=== PATIENT | male | born 1980 | race Caucasian/White ===

== ENCOUNTER 2017-09-15 16:43 | Emergency (ER) | payer SELFPAY ==
[~2017-09-15] VITALS: Ht 177.8 cm; Wt 95.3 kg
[~2017-09-15 16:43] MED LIST: SUMA25TA; VERA240T97 PO
[2017-09-15 16:50] VITALS: BP 131/81
[2017-09-15] MEDS ORDERED: HYDROCODONE/APAP 10/325MG 1 EA TABLET ONE (17:11)
[2017-09-15 17:15] LABS: APPEARANCE,URINE Clear (CLEAR); BILIRUBIN,URINE Negative (NEGATIVE); BLOOD, URINE Negative Ery/uL (NEGATIVE); COLOR,URINE Yellow (YELLOW); KETONES,URINE Negative (NEGATIVE); LEUKOCYTE ESTERASE ,URINE Negative (NEGATIVE); NITRITE, URINE Negative (NEGATIVE); PROTEIN,URINE Negative (NEGATIVE); UGLUCOSE Negative (NEGATIVE); UROBILINOGEN,URINE 0.2 EU/dL (0.2)
[2017-09-15] MEDS ORDERED: HYDROCODONE/APAP 10/325MG 1 EA TABLET PO ONE (17:30)
== END 2017-09-15 21:03 | disposition home or self-care (01) ==
LOC: ER 16:51
DX: N43.2 Other hydrocele (principal); N50.3 Cyst of epididymis; F17.200 Nicotine dependence, unspecified, uncomplicated
CPT/HCPCS: 76870; 81001; 99285; A4606; Z7610; 81000-TC

== ENCOUNTER 2017-10-11 23:47 | Emergency (ER) | payer SELFPAY ==
[~2017-10-11] VITALS: Ht 177.8 cm; Wt 95.3 kg
--- NOTE | 2017-10-11 23:55 | NUR ---
pt states " I did meth today after being sober for 3 months"
--- NOTE | 2017-10-11 23:55 | NUR ---
bb friend stating "i took 50 100mg advil pills at 1030p to try and hurt myself". pt states he was "being suicidal and had no plan, and just did it." Pt denies wanting to hurt others. pt is aaox4. resp even and unlabored. no s/s of acute distress noted. skin pink and warm. VSS. pt gowned and placed on monitor and pox. urine sample collected. awaiting md for eval. pt safety and comfort measures in place. family member bedside with pt.
[2017-10-12] MEDS ORDERED: LORAZEPAM 1 MG TABLET ONE ×2 (00:22→01:22)
--- NOTE | 2017-10-12 00:26 | NUR ---
Phlebotomy bedside for blood draw
[2017-10-12] MEDS ORDERED: LORAZEPAM 1 MG TABLET PO ONE ×2 (00:30→01:30)
[2017-10-12 00:45] LABS: BASOPHILS # (AUTO) 0.1 /CMM (0.0-0.2); BASOPHILS % (AUTO) 1.3 % (0.0-2.0); EOSINOPHILS # (AUTO) 0.1 /CMM (0.0-0.7); EOSINOPHILS % (AUTO) 1.4 % (0.0-6.0); HEMATOCRIT 44 % (39-51); HEMOGLOBIN 15.4 g/dL (13.5-17.5); LYMPHOCYTES # (AUTO) 2.8 /CMM (0.8-4.8); LYMPHOCYTES % (AUTO) 28.8 % (20.0-44.0); MEAN CORPUSCULAR HEMOGLOBIN 31 PG (26.0-33.0); MEAN CORPUSCULAR HGB CONC 35 g/dl (31.0-36.0); MEAN CORPUSCULAR VOLUME 88 fL (80-96); MONOCYTES # (AUTO) 0.4 /CMM (0.1-1.30); MONOCYTES % (AUTO) 4.2 % (2.0-12.0); NEUTROPHILS # (AUTO) 6.3 /CMM (1.8-8.9); NEUTROPHILS % (AUTO) 64.3 % (43.0-81.0); PLATELET COUNT (AUTO) 317 /CMM (150-450); RDW COEFFICIENT OF VARIATION 13.1 (11.5-15.0); RED BLOOD CELL COUNT(AUTO) 4.99 MIL/uL (4.5-6.0); WHITE BLOOD COUNT (AUTO) 9.8 K/uL (4.3-11.0)
[2017-10-12 01:11] LABS: CALCIUM, SERUM 9.3 mg/dL (8.5-10.1); CREATININE 1.1 mg/dL (0.6-1.3); POTASSIUM 3.9 mmol/L (3.5-5.1)
[2017-10-12 01:17] LABS: ALBUMIN 4.1 g/dL (3.4-5.0); BILIRUBIN,DIRECT 0.1 mg/dL (0.0-0.2); BILIRUBIN,TOTAL 0.6 mg/dL (0.2-1.0); SALICYLATE 3.3 mg/dL (2.8-20.0); TOTAL PROTEIN, SERUM 7.9 g/dL (6.4-8.2)
--- NOTE | 2017-10-12 01:48 | NUR ---
Patient is resting comfortably in bed with eyes closed. Easily aroused. VSS
--- NOTE | 2017-10-12 01:52 | NUR ---
Nella was paged for psych eval.
--- NOTE | 2017-10-12 03:22 | NUR ---
Nella bedside with pt for psych eval
--- NOTE | 2017-10-12 03:39 | NUR ---
Patient discharged to home in stable condition. Written and verbal after care instructions given. Patient verbalizes understanding of instruction.
[2017-10-12 03:42] VITALS: BP 135/91
== END 2017-10-12 03:43 | disposition home or self-care (01) ==
LOC: ER 23:48
DX: T39.311A Poisoning by propionic acid derivatives, accidental (unintentional), initial encounter (principal); F15.10 Other stimulant abuse, uncomplicated; F41.9 Anxiety disorder, unspecified; Z71.6 Tobacco abuse counseling; Y92.89 Other specified places as the place of occurrence of the external cause
CPT/HCPCS: 36415; 80048; 80076; 80305; 80329; 85025; 99284; 99406; A4606; G0480 ×2; Z7610

== ENCOUNTER 2017-12-04 20:57 | Emergency (ER) | payer OTHER ==
--- NOTE | 2017-12-04 21:06 | NUR ---
PT CALLED FOR TRIAGE. NO RESPONSE
--- NOTE | 2017-12-04 21:15 | NUR ---
PT CALLED FOR TRIAGE, NO RESPONSE.
== END 2017-12-04 22:24 | disposition left against medical advice (07) ==
LOC: ER 21:05
DX: Z53.21 Procedure and treatment not carried out due to patient leaving prior to being seen by health care provider (principal); R11.10 Vomiting, unspecified

== ENCOUNTER 2019-01-13 12:52 | Inpatient (IN) | payer OTHER ==
[~2019-01-13] VITALS: Ht 182.9 cm; Wt 99.8 kg
[2019-01-13] VITALS (22 sets, daily range): BP systolic 94–174; BP diastolic 48–119
[~2019-01-13 12:52] MED LIST changes: +VERA240T14 PO; -VERA240T97 PO
[2019-01-13] MEDS ORDERED: SUCCINYLCHOLINE CHLORIDE 20 MG/ML VIAL IV ONE ×2 (12:54→14:00)
[2019-01-13] MEDS ORDERED: PROPOFOL 100 ML ONE (12:56)
--- NOTE | 2019-01-13 12:59 | NUR ---
DR WARREN, RT AND RN AT BEDSIDE FOR INTUBATION
--- NOTE | 2019-01-13 13:02 | NUR ---
INTUBATION DONE: NOTED W BILATERAL CHEST RISE AND FALL + COLOR CHANGE BILATERAL BREATH SOUNDS NO GURGLING SOUND AT EPIGASTRIC AREA A/C 12 VT 600 O2 100% PEEP 0.0 Addendum: 01/13/19 at 1355 by MONICA INTUBATION DONE: OPA INSERTED SIZE 8 23 AT THE LIP NOTED W BILATERAL CHEST RISE AND FALL + COLOR CHANGE BILATERAL BREATH SOUNDS NO GURGLING SOUND AT EPIGASTRIC AREA A/C 12 VT 600 O2 100% PEEP 0.0
--- NOTE | 2019-01-13 13:05 | NUR ---
RT PT CAME IN EMS FOR DRUG OVERDOSE, INTUBATED PT 8.0 CM 24CM SECURED AT LIP, PLACED ON [facility] VENT AC 14 600 60% +0 SX PINK TINGE YELLOW SECRETIONS SENT TO LAB NAHID ORDERED SETTING VENT PLUGGED IN RED OUTLET BAG AND MASK AT HOB WILL CONT TO MONITOR Addendum: 01/13/19 at 1452 by ROBI RITCHIE RT Amended: Links added.
[2019-01-13 13:19] LABS: BASOPHILS # (AUTO) 0.1 /CMM (0.0-0.2); BASOPHILS % (AUTO) 0.8 % (0.0-2.0); EOSINOPHILS % (AUTO) 1.3 % (0.0-6.0); HEMATOCRIT 41 % (39-51); HEMOGLOBIN 14.2 g/dL (13.5-17.5); LYMPHOCYTES # (AUTO) 2.5 /CMM (0.8-4.8); LYMPHOCYTES % (AUTO) 28.9 % (20.0-44.0); MEAN CORPUSCULAR HGB CONC 35 g/dl (31.0-36.0); MEAN CORPUSCULAR VOLUME 88 fL (80-96); MONOCYTES # (AUTO) 0.7 /CMM (0.1-1.30); MONOCYTES % (AUTO) 7.9 % (2.0-12.0); NEUTROPHILS # (AUTO) 5.3 /CMM (1.8-8.9); NEUTROPHILS % (AUTO) 61.1 % (43.0-81.0); PLATELET COUNT (AUTO) 325 /CMM (150-450); RED BLOOD CELL COUNT(AUTO) 4.61 MIL/uL (4.5-6.0); WHITE BLOOD COUNT (AUTO) 8.7 K/uL (4.3-11.0)
[2019-01-13] MEDS ORDERED: IV NS 0.9% 1,000 ML BAG IV ONE (13:30)
--- NOTE | 2019-01-13 13:30 | NUR ---
RT XRAY DONE ADVANCE TUBE BY 1CM NOW AT 24CM LIPLINE PER DR WARREN
--- NOTE | 2019-01-13 13:31 | NUR ---
ADJUSTMENT AT THE LIPLINE BY RT TO 24
[2019-01-13] MEDS ORDERED: PROPOFOL 100 ML IV ONE (13:32)
--- NOTE | 2019-01-13 13:33 | NUR ---
POISON CONTROL CALLED, SPOKE WITH KENDAL WITH FF RECOMMENDATIONS: EKG,CHEMISTRY,ALCOHOL,TYLENOL,ASPIRIN,DRUG SCREEN,SEIZURE PRECAUTION,CARDIAC MONITORING,WATCH FOR Q-T PROLONGATION DR WARREN INFORMED.
[2019-01-13 13:34] LABS: ALANINE AMINOTRANSFERASE 44 U/L (12-78); ALBUMIN 3.7 g/dL (3.4-5.0); ALCOHOL, BLOOD 20 mg/dL (0-0); ALKALINE PHOSPHATASE 74 U/L (46-116); ASPARTATE AMINOTRANSFERASE 43 U/L (15-37); BILIRUBIN,DIRECT 0.1 mg/dL (0.0-0.2); BILIRUBIN,TOTAL 1.1 mg/dL (0.2-1.0); CALCIUM, SERUM 9.1 mg/dL (8.5-10.1); CARBON DIOXIDE 23 mmol/L (21-32); CHLORIDE 105 mmol/L (98-107); CREATININE 1.2 mg/dL (0.6-1.3); GLUCOSE 134 mg/dL (74-106); POTASSIUM 3.1 mmol/L (3.5-5.1); SODIUM SERUM 142 mmol/L (136-145); TOTAL PROTEIN, SERUM 7.1 g/dL (6.4-8.2); UREA NITROGEN, BLOOD 21 mg/dL (7-18)
[2019-01-13 13:36] LABS: ACETAMINOPHEN < 2 ug/ml (10-30); SALICYLATE 2.1 mg/dL (2.8-20.0)
[2019-01-13 13:41] LABS: APPEARANCE,URINE Clear (CLEAR); BILIRUBIN,URINE SMALL (NEGATIVE); BLOOD, URINE Small Ery/uL (NEGATIVE); KETONES,URINE Negative (NEGATIVE); LEUKOCYTE ESTERASE ,URINE Negative (NEGATIVE); NITRITE, URINE Negative (NEGATIVE); PH,URINE 5.5 (5.0-8.0); PROTEIN,URINE 30 mg/dl (NEGATIVE); UGLUCOSE Negative (NEGATIVE); UROBILINOGEN,URINE 0.2 EU/dL (0.2)
[2019-01-13 13:42] LABS: COLOR,URINE Dark Yellow (YELLOW)
[2019-01-13 13:55] LABS: BACTERIA,URINE Few /HPF (None Seen); MUCUS,URINE Many /LPF (None Seen); SQUAMOUS EPITHELIAL CELL,UR Rare /HPF (None Seen); URINE AMORPHOUS URATE Few /HPF (None Seen)
--- NOTE | 2019-01-13 13:55 | NUR ---
REPORT GIVEN TO MARIA LUISA ENCARNACION FOR CONT OF CARE.
[2019-01-13 13:56] LABS: WBC,URINE 0-2 /HPF (0-3)
[2019-01-13] MEDS ORDERED: PROPOFOL 200 MG/20 ML VIAL IV ONE (14:00)
--- NOTE | 2019-01-13 14:15 | NUR ---
RT PT CAME IN FOR DRUG OVERDOSE INTUBATED WITH 7.0 22CM AT LIP SECURED, EQUAL BILATERAL CHEST RISE, C02 COLOR CHANGE PLACED ON [facility] VENT AC 12 500 100% +0. VENT PLUGGED IN RED OUTLET BAG AND MASK AT [facility] WILL CONT TO MONITOR Addendum: 01/13/19 at 1500 by ROBI RITCHIE RT Amended: Links added. Addendum: 01/13/19 at 1503 by ROBI RITCHIE RT WRONG DOCUMENTATION
--- NOTE | 2019-01-13 14:52 | NUR ---
RT PT TRANSFERRED TO ICU
[2019-01-13] MEDS ORDERED: ONDANSETRON HCL/PF 4 MG/2 ML VIAL IVP PRN (15:00)
[2019-01-13] MEDS ORDERED: MORPHINE SULFATE INJ 2 MG/ML DISP.SYRIN IV PRN (15:00)
[2019-01-13] MEDS ORDERED: ACETAMINOPHEN 650 MG/SUPP.RECT RC PRN (15:00)
[2019-01-13] MEDS ORDERED: Z GUARD REMEDY 2 OZ OINT TP PRN (15:00)
--- NOTE | 2019-01-13 15:00 | NUR ---
RN INITIAL NOTES RECEIVED PT FROM ER, PT INTUBATED, ON VENT. NO RESPIRATORY DISTRESS NOTED. NO SOB NOTED. NO SIGNS OF PAIN NOTED. PT SEDATED, ON DIPRIVAN AT 70MCG/KG/MIN. IV LINE IN PLACE. FC IN PLACE. NO HEMATURIA NOTED. BODY ASSESSMENT DONE. SKIN INTACT. SEEN AND EXAMINED BY DR ASHLEE RAYMOND. ADMISSION ORDERS MADE. SEEN AND EXAMINED BY DR HARDY. ORDERED RPT CXR. AWARE OF ABG RESULT. WILL CLOSELY MONITOR. 1530 FAMILY AT BEDSIDE. PERTINENT INFORMATION REGARDING PT PROVIDED BY MOTHER AND SISTER.
[2019-01-13] MEDS ORDERED: POTASSIUM CHLORIDE 20 MEQ POWDER PACKET GT ONE ×2 (15:30→17:00)
[2019-01-13] MEDS: FAMOTIDINE/PF INJ 20 MG/2 ML VIAL IV SCH (16:03)
[2019-01-13] MEDS: PROPOFOL 100 ML IV PRN ×4 (16:04→21:39)
--- NOTE | 2019-01-13 16:15 | NUR ---
MARIA LUISA NOTES EKG RESULT RELAYED TO DR SAM. VENEGAS ORDERED STAT TROPONIN. WILL CLOSELY MONITOR PT. Addendum: 01/13/19 at 1756 by GAGE GIBBS RN TROPONIN RESULT, NEGATIVE, RELAYED TO DR BAEZ NO NEW ORDER
--- NOTE | 2019-01-13 18:40 | NUR ---
RN CLOSING NOTES PT REMAINS INTUBATED. NO RESPIRATORY DISTRESS NOTED. NO SOB NOTED. PT REMAINS SEDATED. KEPT COMFORTABLE. KEPT CLEAN AND DRY. REPOSITIONED. WILL ENDORSE FOR CONTINUITY OF CARE.
--- NOTE | 2019-01-13 20:30 | NUR ---
THERMAL CUTTER HELPER NOTES PATIENT'S FATHER DORA AT BEDSIDE, REQUESTING TO BE CALLED FIRST IN THE EVENT OF AY EMERGENCY.
--- NOTE | 2019-01-13 20:42 | NUR ---
FATHER - DORA - [phone] MOTHER - GEOVANNY - [phone]
--- NOTE | 2019-01-13 20:46 | NUR ---
BIOF[employer]S PRODUCT MANAGER NOTES - POISON CONTROL RECEIVE CALL FROM MAICO WITH POISON CONTROL, WHOM WAS CALLING FOR UPDATES. LATEST VITAL SIGNS RELAYED, WELL TOX SCREEN RESULTS. PATIENT REMAINS INTUBATED AND SEDATED AT THIS TIME. RN RECOMMENDED THAT POISON CONTROL CALL BACK TOMORROW MORNING AFTER WEANING TRIALS
[2019-01-14] VITALS (25 sets, daily range): BP systolic 88–116; BP diastolic 52–80
[2019-01-14] MEDS: PROPOFOL 100 ML IV PRN ×3 (00:06→05:32)
--- NOTE | 2019-01-14 04:00 | NUR ---
MANAGER FOOD BEVERAGE NOTES PATIENT RESTING IN BED COMFORTABLY, REMAINS SEDATED ON DIPRIVAN, ORALLY INTUBATED. BED BATH RENDERED, TOLERATED WELL. WILL CONTINUE MONITORING.
[2019-01-14 05:02] LABS: BASOPHILS % (AUTO) 0.4 % (0.0-2.0); EOSINOPHILS % (AUTO) 3.9 % (0.0-6.0); HEMATOCRIT 37 % (39-51); HEMOGLOBIN 13.1 g/dL (13.5-17.5); LYMPHOCYTES # (AUTO) 2.3 /CMM (0.8-4.8); LYMPHOCYTES % (AUTO) 36.4 % (20.0-44.0); MEAN CORPUSCULAR HGB CONC 35 g/dl (31.0-36.0); MEAN CORPUSCULAR VOLUME 89 fL (80-96); MONOCYTES # (AUTO) 0.5 /CMM (0.1-1.30); MONOCYTES % (AUTO) 7.1 % (2.0-12.0); NEUTROPHILS # (AUTO) 3.3 /CMM (1.8-8.9); NEUTROPHILS % (AUTO) 52.2 % (43.0-81.0); PLATELET COUNT (AUTO) 245 /CMM (150-450); RED BLOOD CELL COUNT(AUTO) 4.16 MIL/uL (4.5-6.0); WHITE BLOOD COUNT (AUTO) 6.4 K/uL (4.3-11.0)
[2019-01-14 05:14] LABS: THYROID STIMULATING HORMONE 1.153 uIU/mL (0.358-3.74)
[2019-01-14 05:25] LABS: CALCIUM, SERUM 8.7 mg/dL (8.5-10.1); CREATININE 1.1 mg/dL (0.6-1.3); MAGNESIUM 2.3 mg/dL (1.8-2.4); PHOSPHORUS 4.3 mg/dL (2.5-4.9); POTASSIUM 4.1 mmol/L (3.5-5.1)
--- NOTE | 2019-01-14 06:00 | NUR ---
BOATBUILDER WOOD NOTES PATIENT'S BP NOTED TO DROP, SYSTOLIC < 90. DIPRIVAN TITRATED DOWN TO 60 MCG, PATIENT REMAINS SEDATED. WILL CONTINUE TO CLOSELY MONITOR
--- NOTE | 2019-01-14 07:00 | NUR ---
CHICKEN VACCINATOR NOTES PATIENT REMAINS ORALLY INTUBATED, SEDATED WELL ON DIPRIVAN, BILATERAL SOFT WRIST RESTRAINTS IN PLACE FOR SAFETY. REPORT GIVEN TO DAY SHIFT NURSE FOR CONTINUITY OF CARE
--- NOTE | 2019-01-14 07:10 | NUR ---
SURVEY SUPERVISOR INITIAL NOTES RECEIVED PT FROM NIGHTSHIFT RN IN STABLE CONDITION. PT SEDATION ON DIPRIVAN DRIP RUNNING AT A RATE OF 50MCG/KG/MIN. PT SUPPORTED ON MECHANICAL VENT. ORDERED VENT SETTINGS ASSESSED FOR ACCURAY. PT HAS AN 8.0 ETT AND 24 AT THE LIP. AC 14, TV 600, FIO2 40% AND NO PEEP. PT TOLERATING SETTINGS WELL. VSS. MORALES CATHETER NOTED TO BE INTACT AND DRAINING TO GRAVITY. OGT NOTED AND CLAMPED. PLACEMENT VERIFIED VIA AUSCULTATION. INVASIVE LINES REMAIN PATEN AND INTACT. NO REDNESS OR SIGNS OF INFILTRATION NOTED. BILATERAL SOFT WRIST RESTRAINTS NOTED FOR SAFETY. NORMAL CAP REFILL AND PERIPHERAL PULSES NOTED. BED IN LOW LOCKED POSITION, SIDE RIALS UP X3. WILL CONTINUE TO CLOSELY MONITOR
--- NOTE | 2019-01-14 07:40 | NUR ---
FLOAT PHLEBOTOMIST NOTES: SELF EXTUBATION DESPITE NECESSARY SAFETY PRECAUTIONS, PT SELF EXTUBATED. VSS AT THIS TIME. DIPRIVAN DRIP STOPPED. PT PLACED ON 3L VIA NC AND SATING AT 1005. NO SOB OR ACUTE SIGNS OF DISTRESS NOTED. BREATHING IS EVEN ND UNLABORED. RT AT BEDSIDE. WILL ALERT WINDOW CUTTER
[2019-01-14] MEDS: FAMOTIDINE/PF INJ 20 MG/2 ML VIAL IV SCH ×2 (08:49→17:29)
--- NOTE | 2019-01-14 10:15 | NUR ---
MEDICARE SPECIALIST NOTES: SPEECH EVAL SPEECH THERAPIST AT BEDSIDE AND MADE AWARE OF PT'S SELF EXTUBATION. THERAPIST ALSO MADE AWARE THAT NURSING SWALLOW EVAL WAS COMPLETED WITH THE USE OF ICE CHIPS. NO S/S OF ASPIRATION OR DIFFICULTY SWALLOWING NOTED DURING EVAL PT THERAPIST, PT'S DIET JANINA BE ADVANCED ONCE MORE ALERT
--- NOTE | 2019-01-14 14:41 | NUR ---
PT TRANSFERRED TO [facility] ROOM 113-1 WITH ALL BELONGINGS AND IN STABLE CONDITION. REPORT GIVEN TO MARIA LUISA LONDONO FOR DELIO
--- NOTE | 2019-01-14 14:45 | NUR ---
RN MS NOTES RECEIVED PT FROM ICU NURSE YOLIE GLASS, PT IS AWAKE, ALERT AND ORIENTED, DENIES PAIN, RESPIRATIONS NORMAL, CALL LIGHT WITHIN REACH, ROOM SET UP ORIENTATION PROVIDED, KEPT COMFORTABLE, SITTER AT BEDSIDE, SAFETY PRECAUTIONS OBSERVED.
--- NOTE | 2019-01-14 15:10 | NUR ---
Social service consult requested by Dr. Fry for intentional overdose. Pt. is a 38 year old male who was admitted for an overdose. Per Dr. Najera's H&P, pt's sister stated that pt. had threatened to kill himself by texting her on the phone and telling her that he took his medication and was at the park. Pt's sister went to the park and found him lethargic and noted that his Seroquel packet was empty and his backpack. Pt's sister called 911. According to the sister, pt. had a 1 month supply of 100 mg Seroquel filled on December 30. Patient took proximately 14-30 tablets approximately 1-2 hours prior to arrival. PAULA met with pt. and his mother Alyssa cardenas. Pt. is alert and oriented x 3. Pt's was stuttering at times while talking. When asked if he intentionally overdosed, pt. denied it. However, pt's mom Alyssa thinks it was intentional. Pt. states he was at the [facility] treatment program and was discharged on Friday. Pt. wanted to go to a sober living on [address], however the program was sending him to another sober living that he did not want to go to. Pt. then, left the sober living and has been staying at [facility]. According to the pt. this is his 3rd rehab within this year. Pt. has had a total of 5 rehab programs. Pt. has been using drugs for the past 22 years. Pt. states he drinks 10 beers per day and a 1 1/2 gram of methamphetamines. Pt. last used methamphetamines two days ago. Pt. has four children, two of his children are under the custody of his mother. Pt. states he feels " Broken inside" but denies being depressed. He states he has anxiety. Pt. is denying suicidal ideations at this time. Patient has a history of methamphetamine abuse and alcohol abuse as per family. She recently was in rehabilitation. PAULA asked pt. if he would like for SW to find him a rehab. Pt. declined stating he will find one of his own. SW offered him drug rehab resources, but pt. declined those as well. SW to follow up with pt. regarding discharge plan tomorrow.
--- NOTE | 2019-01-14 18:23 | NUR ---
RN MS NOTES PT IN BED, ASLEEP, EASY TO AROUSE, ALERT AND ORIENTED, NO COMPLAINT AT THIS TIME, TOLERATING CURRENT DIET, ASPIRATION PRECAUTIONS OBSERVED, CALL LIGHT WITHIN REACH, KEPT WARM AND COMFORTABLE.
--- NOTE | 2019-01-14 19:54 | NUR ---
MS/RN OPENING NOTES RECEIVED PATIENT IN BED, AWAKE, ALERT X3, ABLE TO VERBALIZE NEEDS, FAMILY AT BEDSIDE, NO GUARDING OR GRIMACE OBSERVED, SKIN WARM TO TOUCH , BED LOCKED, CALL LIGHTS WITHIN REACH, ON OXYGEN VIA NC AT 2L. PATIENT WITH MORALES DRAINING URINE, SKIN INTACT. RECEIVED REPORT FROM AM RN FOR DELIO. WILL MONITOR, PLAN OF CARE PROVIDED,FOR SAFETY INSTRUCTION, REQUIRE MONITORING WITH SITTER,
[2019-01-15 04:20] VITALS: BP 113/68
--- NOTE | 2019-01-15 05:00 | NUR ---
MS/RN NOTES PATIENT RESTING COMFORTABLY IN BED, ABLE TO TURN AND REPOSITION, REFUSE TO HAVE LINEN CHANGE ,
--- NOTE | 2019-01-15 06:59 | NUR ---
TELE/RN NOTES PATIENT ABLE TO SLEEP DURING THE NIGHT, ABLE TO VERBALIZE NEEDS, SKIN WARM TO TOUCH, ABLE TO DO SELF CARE WITH SUPERVISION. RESPIRATIONS EVEN AND UNLABORES, CAN TOLERATE MECHANICAL SOFT DIET, DENIES PAIN. NO CHANGE OF CONDITION NOTED, WITH SITTER, WILL ENDORSE TO AM RN FOR DELIO.
--- NOTE | 2019-01-15 07:51 | NUR ---
RN MS NOTES RECEIVED BEDSIDE REPORT PATIENT A/O X4. NO SIGSN OR SYMPTOM OF RESPIRATORY DISTRESS OR ACUTE PAIN NOTED. MORALES CATH DRAINING DARK YELLOW URINE .IV SALINE LOCK TO (R) HAND # 18 GAUGE AND RFA # 20 GAUGE. SAFETY PRECAUTIONS IN PLACE BED IN LOW POSITION CALL LIGHT WITHIN REACH
[2019-01-15 08:00] VITALS: BP 125/67
[2019-01-15] MEDS: FAMOTIDINE/PF INJ 20 MG/2 ML VIAL IV SCH (08:47)
--- NOTE | 2019-01-15 11:14 | NUR ---
MORALES CATH REMOVED WILL MONITOR URINE OUTPUT
[2019-01-15 16:00] VITALS: BP 129/83
--- NOTE | 2019-01-15 16:51 | NUR ---
RN MS DISCHARGE NOTES PATIENT DISCHARGED FROM UNIT TO HOME ACCOMPANIED BY FATHER. VITALS STABLE ALL EXIT CARE AND EDUCATION MATERIAL GIVEN TO PATIENT. ALL BELONGINGS ACCOUNTED AND SIGNED FOR. IV # 20 GAUGE REMOVED FORM RIGHT FOREARM CATH INTACT MINIMAL BLEEDING NOTED PRESSURE APPLIED. SKIN INTACT NO PHOTOS TAKEN.
== END 2019-01-15 16:50 | disposition home or self-care (01) | DRG 917 ==
LOC: ER 12:53 → ICU 14:18 → MEDSG1 01-14 14:08
PROC: 5A1935Z Respiratory Ventilation, Less than 24 Consecutive Hours (ICD-10-PCS; principal; 2019-01-13)
PROC: 0BH17EZ Insertion of Endotracheal Airway into Trachea, Via Natural or Artificial Opening (ICD-10-PCS; principal; 2019-01-13)
DX: T43.592A Poisoning by other antipsychotics and neuroleptics, intentional self-harm, initial encounter (principal); J96.00 Acute respiratory failure, unspecified whether with hypoxia or hypercapnia; G92 Toxic encephalopathy; R45.851 Suicidal ideations; J98.11 Atelectasis; F19.20 Other psychoactive substance dependence, uncomplicated; Y92.89 Other specified places as the place of occurrence of the external cause; E87.6 Hypokalemia; F32.9 Major depressive disorder, single episode, unspecified; F15.90 Other stimulant use, unspecified, uncomplicated
CPT/HCPCS: 31720; 36415; 36600; 71045-TC; 80048-TC; 80061-TC; 80076-TC; 80305; 81000-TC; 82803-TC; 83735-TC; 84100-TC; 84443-TC; 84484-TC; 85025-TC; 85730-TC; 87081-TC; 92521; 92526; 92611-TC; 94002-TC; 94003-TC; 94760-TC; G0378; G0480; J0330; J3490; J7030